=== PATIENT | male | born 1955 | race Caucasian/White ===

== ENCOUNTER → 2018-11-12 | Outpatient (CLI) | payer BC | LOC: LAB SHORT 14:01 → PLD 14:01 | DX: L57.0 Actinic keratosis (principal) | CPT/HCPCS: 88305 ==

== ENCOUNTER 2020-07-17 08:53 | Day surgery (SDC) | payer MEDICARE, OTHER ==
[~2020-07-17] VITALS: Ht 162.6 cm; Wt 92.6 kg
[~2020-07-17 08:53] MED LIST: ALBU90OI; FLUT1DIS5 INH; IPRAT-ALBUT 0.5-3 ML INH; LOVA40 PO; SPIRIVA RESPIMAT4 G3 INH
--- NOTE | 2020-07-17 10:11 | NUR ---
07/17/20 [id number] Stu Trimble PT VERY SHORTNESS OF BREATH PRE-OP. ANESTHESIA TO ASSESS PT. DR. MCCAULEY WILL BE SEDATING DURING PROCEDURE.
--- NOTE | 2020-07-17 11:07 | NUR ---
07/17/20 Stu Graham DUE TO PT'S SHORTNESS OF BREATH PRE-OP AND O2 SAT OF 92% IN RA. DR. MCCAULEY TO ASSIST WITH ANESTHESIA DURING PROCEDURE.
--- NOTE | 2020-07-17 11:19 | NUR ---
07/17/20 1119 Stu Trimble PT AWAKE, ALERT, ORIENTED. PT STATES HE IS READY TO GO HOME. PT STEADY AND WAS ABLE TO DRESSED HIMSELF WITHOUT ANY DIFFICULTIES. RN ENCOURAGED PT TO FOLLOW-UP WITH PCP CONCERNING JARVIS AND POSSIBLE O2 USE.
== END 2020-07-17 11:15 | disposition home or self-care (01) ==
LOC: ORSCSDS 08:53
PROVIDERS: Surgery
PROC: 0DJD8ZZ Inspection of Lower Intestinal Tract, Via Natural or Artificial Opening Endoscopic (ICD-10-PCS; principal; 2020-07-17 10:15)
DX: Z12.11 Encounter for screening for malignant neoplasm of colon (principal); Z86.010 Personal history of colon polyps; J44.9 Chronic obstructive pulmonary disease, unspecified; E78.5 Hyperlipidemia, unspecified; J45.909 Unspecified asthma, uncomplicated; F17.210 Nicotine dependence, cigarettes, uncomplicated; Z79.82 Long term (current) use of aspirin; Z79.899 Other long term (current) drug therapy
CPT/HCPCS: J2250; J2704; J7120

== ENCOUNTER → 2020-11-01 | Outpatient (CLI) | payer MEDICARE, OTHER | LOC: LAB 06:00 → LAB SHORT 06:00 | DX: I10 Essential (primary) hypertension (principal) | CPT/HCPCS: 82043 ==

== ENCOUNTER 2023-03-05 12:25 | Inpatient (IN) | payer MEDICARE, OTHER ==
[~2023-03-05] VITALS: Ht 162.6 cm; Wt 81.7 kg
[2023-03-05 12:51] LABS: Bicarbonate Venous 25.4 mmol/L (24.0-30.0); PCO2 Venous 43.1 mmHg (38-42)
[2023-03-05 12:57] LABS: BASOPHILS ABSOLUTE AUTO 0.07 K/mm3 (0.00-0.23); BASOPHILS PERCENT AUTO 1 % (0-2); EOSINOPHILS ABSOLUTE AUTO 0.01 K/mm3 (0.00-0.68); EOSINOPHILS PERCENT AUTO 0 % (0-6); Hematocrit 52.3 % (37.0-53.0); Hemoglobin 18.1 g/dL (13.5-17.5); IMMATURE GRAN ABSOLUTE AUTO 0.07 K/mm3 (0.00-0.10); IMMATURE GRAN PERCENT AUTO 1 % (0-1); LYMPHOCYTES PERCENT AUTO 4 % (21-46); MONOCYTES ABSOLUTE AUTO 1.44 K/mm3 (0.16-1.47); MONOCYTES PERCENT AUTO 10 % (4-13); Mean Corpuscular HGB 31.6 pg (26.0-34.0); Mean Corpuscular HGB Conc 34.6 g/dL (31.5-36.5); Mean Corpuscular Volume 91 fL (80-100); Mean Platelet Volume 9.3 fL (9.1-12.4); NEUTROPHILS ABSOLUTE AUTO 13.04 K/mm3 (1.96-9.15); NEUTROPHILS PERCENT AUTO 86 % (41-73); Platelet Count 280 K/mm3 (150-400); RDW Coefficient Variation 12.7 % (11.7-14.2); RDW Standard Deviation 42.8 fL (35.1-46.3); Red Blood Cell Count 5.72 M/mm3 (4.30-5.90); White Blood Cell Count 15.23 K/mm3 (4.00-11.30)
[2023-03-05 13:15] LABS: Albumin, Blood 2.8 g/dL (3.4-5.0); Albumin/Globulin Ratio 0.5 (0.8-1.8); Bilirubin, Total 0.9 mg/dL (0.1-1.0); Bun/Creatinine Ratio 15.6 (12.0-20.0); Calcium, Blood 8.9 mg/dL (8.5-10.1); Creatinine, Blood 1.09 mg/dL (0.60-1.20); Globulin, Blood 5.1 g/dL (2.2-4.0); Potassium, Blood 3.9 mmol/L (3.5-5.5); Total Protein, Blood 7.9 g/dL (6.4-8.2)
[2023-03-05 13:49] LABS: Influenza A, PCR NEGATIVE (NEGATIVE); Influenza B, PCR NEGATIVE (NEGATIVE); Resp Syncytial Virus, PCR NEGATIVE (NEGATIVE); SARS-Cov-2 (COVID-19) PCR, MMC NEGATIVE (NEGATIVE)
[2023-03-05] MEDS ORDERED: Ventolin/Prove6.7 GM INH (16:50)
[2023-03-05] MEDS ORDERED: TRELEGY ELLIPT1 EACH IH (16:51)
[2023-03-05 16:57] VITALS: BP 174/104
--- NOTE | 2023-03-05 17:26 | NUR ---
SHIFT/ ADMISSION SUMMARY PATIENT IS ALERT AND ORIENTED. PATIENT ORIENTED TO FLOOR AND ROOM. PATIENT HAD TELE ORDERED. PATIENT IS ON 4L NC SATTING ABOVE 92. NO COMPLAINTS OF PAIN, NAUSEA, SOB OR VOMITTING. PATIENT IN CHAIR CURRENTLY. ADMISSION COMPLETED.
[2023-03-05 17:31] VITALS: BP 178/86
[2023-03-05 19:38] VITALS: BP 164/77
[2023-03-05 21:41] VITALS: BP 168/78
[2023-03-06 03:48] VITALS: BP 153/90
[2023-03-06 05:45] LABS: Hematocrit 53.4 % (37.0-53.0); Hemoglobin 17.9 g/dL (13.5-17.5); Mean Corpuscular HGB 30.7 pg (26.0-34.0); Mean Corpuscular HGB Conc 33.5 g/dL (31.5-36.5); Mean Corpuscular Volume 92 fL (80-100); Mean Platelet Volume 9.3 fL (9.1-12.4); Platelet Count 289 K/mm3 (150-400); RDW Coefficient Variation 12.8 % (11.7-14.2); RDW Standard Deviation 43.3 fL (35.1-46.3); Red Blood Cell Count 5.83 M/mm3 (4.30-5.90); White Blood Cell Count 12.67 K/mm3 (4.00-11.30)
[2023-03-06 06:08] LABS: Albumin, Blood 2.6 g/dL (3.4-5.0); Albumin/Globulin Ratio 0.5 (0.8-1.8); Bilirubin, Total 0.4 mg/dL (0.1-1.0); Bun/Creatinine Ratio 23.1 (12.0-20.0); Calcium, Blood 8.9 mg/dL (8.5-10.1); Creatinine, Blood 1.04 mg/dL (0.60-1.20); Potassium, Blood 4.1 mmol/L (3.5-5.5); Total Protein, Blood 7.6 g/dL (6.4-8.2)
[2023-03-06 07:23] VITALS: BP 146/94
[2023-03-06 08:05] VITALS: BP 157/77
[2023-03-06 14:42] LABS: Hemoglobin 18.7 g/dL (13.5-17.5); Mean Corpuscular HGB 31.4 pg (26.0-34.0); Mean Corpuscular HGB Conc 33.9 g/dL (31.5-36.5); Mean Corpuscular Volume 93 fL (80-100); Mean Platelet Volume 9.4 fL (9.1-12.4); Platelet Count 289 K/mm3 (150-400); RDW Coefficient Variation 12.9 % (11.7-14.2); RDW Standard Deviation 43.5 fL (35.1-46.3); Red Blood Cell Count 5.95 M/mm3 (4.30-5.90); White Blood Cell Count 15.59 K/mm3 (4.00-11.30)
[2023-03-06 14:45] LABS: Hematocrit 55.1 % (37.0-53.0)
[2023-03-06 16:50] VITALS: BP 145/86
--- NOTE | 2023-03-06 16:54 | NUR ---
SHIFT SUMMARY: PATIENT A&OX4. CALM, PLEASANT AND COOPERATIVE c CARE. PATIENT DENIES CP/PRESSURE, SOB, N/V AND GENERALIZED PAIN. ON TELE, SR HR IN LOW 90'S c OCCASIONAL PAC. PATIENT ON 4L OF O2 VIA NC c SPO2 RANGES 91-93% T/O SHIFT. LUNGS HAS WHEEZES T/O TO AUSCULTATION, RR IS EVEN AND UNLABORED. PATIENT AMBULATES TO BATHROOM AND BACK IN BED INDEPENDENTLY T/O SHIFT. RECEIVED SCHEDULED MEDS PER EMAR. PIV TO R FOREARM SALINE LOCKED. CALL LIGHT IN REACH. PATIENT EDUCATED ON NON SMOKING POLICY, RISK OF INJURY AN IGNITION SOURCES WHEN O2 IN USE. PATIENT DENIES SMOKING AND VERBALIZED UNDERSTANDING.
[2023-03-06 19:07] VITALS: BP 148/81
[2023-03-07 04:04] VITALS: BP 158/88
--- NOTE | 2023-03-07 05:44 | NUR ---
SHIFT SUMMARY NO ACUTE CHANGES. HAS RESTED QUIETLY WITH EYES CLOSED, RESP EVEN & UNLABORED. IS ON 4 L'S O2 VIA N/C, SATS REMAIN >90%. TELE SHOWS SR WITH OCC PAC'S. IS INDEPENDENT IN THE ROOM FOR RESTROOM USE. SPUTUM SAMPLE COLLECTED & SENT. DENIES COMPLAINTS. IS PLEASANT & COOPERATIVE WITH ALL CARE. BED IN LOW POSITION, CALL LIGHT WITHIN REACH.
[2023-03-07 06:56] LABS: Albumin, Blood 2.4 g/dL (3.4-5.0); Albumin/Globulin Ratio 0.5 (0.8-1.8); Bilirubin, Total 0.3 mg/dL (0.1-1.0); Bun/Creatinine Ratio 32.4 (12.0-20.0); Calcium, Blood 8.8 mg/dL (8.5-10.1); Creatinine, Blood 1.08 mg/dL (0.60-1.20); Globulin, Blood 4.4 g/dL (2.2-4.0); Potassium, Blood 4.6 mmol/L (3.5-5.5); Total Protein, Blood 6.8 g/dL (6.4-8.2)
[2023-03-07 07:01] VITALS: BP 160/83
[2023-03-07 15:39] VITALS: BP 161/92
--- NOTE | 2023-03-07 17:03 | NUR ---
SHIFT SUMMARY: PATIENT A&OX4. PLEASANT AND COOPERATIVE c CARE. DENIES CP/PRESSURE. ON TELE, SR HR RANGES LOW TO HIGH 80'S BPM. DENIES SOB WHEN RESTING IN BED. ON 3L OF O2 VIA NC c SPO2 RANGES 90-94%. LUNGS STILL WHEEZY T/O TO AUSCULTATIONS. PATIENT REPORTS LESS SOB WHEN HE AMBULATES IN ROOM. PER PATIENT "OVERALL, I FEEL SO MUCH BETTER AND I CAN FEEL THE IMPROVEMENTS." PATIENT RECEIVED SCHEDULED MEDS PER EMAR. PRN BREATHING TX ADMINISTERED BY RT T/O SHIFT. PATIENT HAS BEEN CONTINENCE OF BOWELS AND BLADDER AND AMBULATES TO BATHROOM INDEPENDENTLY. EATING AND DRINKING WELL. VITAL SIGNS REVIEWED. PIV TO R FOREARM SALINE LOCKED. CALL LIGHT IN REACH. PATIENT EDUCATED ON NON SMOKING POLICY, RISK OF INJRY AND IGNITION SOURCES WHEN O2 IN USE. PATIENT DENIES SMOKING AND VERBALIZED UNDERSTANDING.
[2023-03-07 17:07] VITALS: BP 161/87
[2023-03-07 19:59] VITALS: BP 153/86
--- NOTE | 2023-03-08 04:18 | NUR ---
SHIFT SUMMARY PATIENT ALERT, PLEASANT AND COOPERATIVE. DENIES PAIN NOR DISCOMFORT. C/O ONGOING INTERMITTANT COUGH, STATES IS NOT FREQUENT AND LESS PRODUCTIVE. WHEEZING THROUGHOUT, OTHERWISE LUNGS ARE CLEAR, NO AUDIBLE CRACKLES/RALES. MAINTAINING SPO2 IN MID 90% ON 3L VIA NC. DENIES SOB AT THIS TIME, STATES FEELING BETTER AND ABLE TO AMBULATE IN ROOM TO AND FROM BATHROOM WITHOUT SOB. INDEPENDANT IN ROOM. CONTINUES ON TELE; SR 80s. PATIENT REMINDED OF FIRE SAFETY AND RISK OF INJURY R/T OXYGEN USE, VERBALIZED UNDERSTANDING, DENIES HAVING ACCESS TO ANY SOURCES OF IGNITION. NO ACUTE CHANGES NOTED OVERNIGHT. PATIENT APPEARES TO BE SLEEPING SOUNDLY IN BED IN NO ACUTE DISTRESS AT THIS TIME. BED LOW, CALL LIGHT WITHIN REACH.
[2023-03-08 04:27] VITALS: BP 148/81
[2023-03-08 05:01] LABS: Hematocrit 52.5 % (37.0-53.0); Hemoglobin 17.6 g/dL (13.5-17.5); Mean Corpuscular HGB 31.2 pg (26.0-34.0); Mean Corpuscular HGB Conc 33.5 g/dL (31.5-36.5); Mean Corpuscular Volume 93 fL (80-100); Mean Platelet Volume 9.1 fL (9.1-12.4); Platelet Count 320 K/mm3 (150-400); RDW Coefficient Variation 12.8 % (11.7-14.2); RDW Standard Deviation 43.9 fL (35.1-46.3); Red Blood Cell Count 5.64 M/mm3 (4.30-5.90); White Blood Cell Count 13.28 K/mm3 (4.00-11.30)
[2023-03-08 05:44] LABS: Albumin, Blood 2.6 g/dL (3.4-5.0); Albumin/Globulin Ratio 0.6 (0.8-1.8); Bilirubin, Total 0.3 mg/dL (0.1-1.0); Bun/Creatinine Ratio 32.1 (12.0-20.0); Calcium, Blood 9.1 mg/dL (8.5-10.1); Creatinine, Blood 1.06 mg/dL (0.60-1.20); Globulin, Blood 4.3 g/dL (2.2-4.0); Total Protein, Blood 6.9 g/dL (6.4-8.2)
[2023-03-08 08:05] VITALS: BP 167/87
--- NOTE | 2023-03-08 17:49 | NUR ---
SHIFT SUMMARY: NO NEW ACUTE CHANGES IN PATIENT CONDITION THIS SHIFT. PATIENT REPORTS OVERALL HE FEELS A LOT BETTER TODAY. PATIENT STILL ON 3L OF O2 VIA NC c SPO2 IN THE LOW 90'S. LUNGS STILL WHEEZY T/O TO AUSCULTATION. TELE WAS DC'D. HYPERTENSIVE. PATIENT STARTED ON PO METOPROLOL 12.5 MG THIS AM. DENIES CP/PRESSURE. SHOWERED AND LINEN CHANGED. PATIENT HAS BEEN AMBULATING IN ROOM T/O SHIFT. EATING AND DRINKING WELL. CONTINENENCE OF BOWELS AND BLADDER. RECEIVED SCHEDULED MEDS PER EMAR. PIV TO R FOREARM SALINE LOCKED. CALL LIGHT IN REACH. PATIENT EDUCATED ON NON SMOKING POLICY, RISK OF INJURY AND IGNITION SOURCES WHEN O2 IN USE. PATIENT DENIES SMOKING AND VERBALIZED UNDERSTANDING.
[2023-03-08 17:56] VITALS: BP 180/92
[2023-03-08 17:58] VITALS: BP 152/75
[2023-03-08 20:46] VITALS: BP 170/94
[2023-03-09 05:24] LABS: BASOPHILS ABSOLUTE AUTO 0.06 K/mm3 (0.00-0.23); BASOPHILS PERCENT AUTO 1 % (0-2); EOSINOPHILS PERCENT AUTO 0 % (0-6); Hemoglobin 18.5 g/dL (13.5-17.5); IMMATURE GRAN ABSOLUTE AUTO 0.27 K/mm3 (0.00-0.10); IMMATURE GRAN PERCENT AUTO 3 % (0-1); LYMPHOCYTES ABSOLUTE AUTO 0.97 K/mm3 (0.84-5.20); LYMPHOCYTES PERCENT AUTO 10 % (21-46); MONOCYTES ABSOLUTE AUTO 0.47 K/mm3 (0.16-1.47); MONOCYTES PERCENT AUTO 5 % (4-13); Mean Corpuscular HGB 30.8 pg (26.0-34.0); Mean Corpuscular HGB Conc 33.3 g/dL (31.5-36.5); Mean Corpuscular Volume 93 fL (80-100); Mean Platelet Volume 8.7 fL (9.1-12.4); NEUTROPHILS ABSOLUTE AUTO 8.35 K/mm3 (1.96-9.15); NEUTROPHILS PERCENT AUTO 83 % (41-73); Platelet Count 306 K/mm3 (150-400); RDW Coefficient Variation 12.5 % (11.7-14.2); RDW Standard Deviation 42.7 fL (35.1-46.3); White Blood Cell Count 10.12 K/mm3 (4.00-11.30)
[2023-03-09 05:29] LABS: Hematocrit 55.6 % (37.0-53.0)
[2023-03-09 05:44] VITALS: BP 146/66
[2023-03-09 05:45] LABS: Bun/Creatinine Ratio 29.2 (12.0-20.0); Creatinine, Blood 1.06 mg/dL (0.60-1.20); Potassium, Blood 5.4 mmol/L (3.5-5.5)
--- NOTE | 2023-03-09 06:32 | NUR ---
SHIFT SUMMARY PATIENT A/Ox4, PLEASANT, COOPERATIVE. DENIES PAIN, SOB, DIFFICULTY BREATHING. STATES GETTING RESTLESS, EAGER TO GO HOME. MINIMAL WHEEZING, LUNGS CTA, NO COUGH. INDEPENDANT IN ROOM. NO ACUTE CHANGES NOTED OVERNIGHT. PATIENT REMINDED OF FIRE SAFETY AND RISK OF INJURY R/T OXYGEN USE, VERBALIZED UNDERSTANDING, DENIES ACCESS TO ANY SOURCES OF IGNITION. BED LOCKED AND IN LOW POSITION, CALL LIGHT WITHIN REACH.
[2023-03-09 07:49] VITALS: BP 134/75
[2023-03-09] MEDS ORDERED: CEPH500 PO (16:15)
[2023-03-09] MEDS ORDERED: Nicoderm Cq1 EAC1 TOP (16:16)
[2023-03-09] MEDS ORDERED: NICODERM CQ1 EA24 TOP (16:16)
[2023-03-09] MEDS ORDERED: NICO21TP TOP (16:17)
[2023-03-09] MEDS ORDERED: Prednisone10 MG PO (16:20)
--- NOTE | 2023-03-09 17:27 | NUR ---
DISCHARGE A&0X4, COOPERATIVE WITH CARE. VERBALIZED INTEREST IN QUITTING SMOKING. SOURCES OF IGNITION ASSESSED DURING HOURLY ROUNDING. NO ACUTE CHANGES THIS SHIFT. HOME O2 EVAL NOTED PT WILL NEED 1L O2 A REST AND 3L WITH AMBULATION. [employer] PORTABLE O2 FOR PATIENT PRIOR TO DISCHARGE. HOME EQUIPMENT SET UP PER PATIENT'S REPORT. DISCHARGE PACKET EXPLAINED AND PT DENIED ANY QUESTIONS OR CONCERNS. PATIENT LEFT ROOM VIA WHEELCHAIR ESCORT AROUND 1600.
== END 2023-03-09 16:45 | disposition home or self-care (01) | DRG 193 ==
LOC: ER 12:25 → MEDS 15:22
PROVIDERS: Emergency Medicine; Hospitalist; Student in an Organized Health Care Education/Training Program; ADMIT Internal Medicine
DX: J18.9 Pneumonia, unspecified organism (principal); J96.21 Acute and chronic respiratory failure with hypoxia; J44.0 Chronic obstructive pulmonary disease with (acute) lower respiratory infection; J44.1 Chronic obstructive pulmonary disease with (acute) exacerbation; F17.210 Nicotine dependence, cigarettes, uncomplicated; D75.1 Secondary polycythemia; R73.9 Hyperglycemia, unspecified; G47.00 Insomnia, unspecified; Z20.822 Contact with and (suspected) exposure to COVID-19; E78.5 Hyperlipidemia, unspecified; F10.90 Alcohol use, unspecified, uncomplicated; Z90.49 Acquired absence of other specified parts of digestive tract; Z88.5 Allergy status to narcotic agent; Z79.51 Long term (current) use of inhaled steroids; Z79.899 Other long term (current) drug therapy; Z71.6 Tobacco abuse counseling
CPT/HCPCS: 0241U; 36415; 71045; 80048; 80053; 82803; 83036; 83605; 83735; 83880; 84145; 84484; 85025; 85027; 87070; 87205; 93005; 93010; 94640; 94644; 94664; 94760; 94761; 96365; 96375; 99285-25; A9270; J0456; J0696; J1650; J2930; J7050